=== PATIENT | female | born 1950 ===

== ENCOUNTER → 2017-07-17 09:04 | Outpatient (CLI) | payer OTHER ==
[~2017-07-17 09:04] MED LIST: GLUCOPHAGE XR500 MG PO; METOPROLOL SUCC25 MG PO; NEURONTIN300 MG PO
== END | disposition home or self-care (01) ==
LOC: PPHC 09:00 → NUTRICION 09:04
DX: E11.9 Type 2 diabetes mellitus without complications (principal); I10 Essential (primary) hypertension; E66.8 Other obesity; M81.0 Age-related osteoporosis without current pathological fracture

== ENCOUNTER → 2018-03-24 | Outpatient (CLI) | payer OTHER | END | disposition home or self-care (01) | LOC: TOM 08:07 | DX: R31.9 Hematuria, unspecified (principal) | CPT/HCPCS: 74178; Q9965 ==